=== PATIENT | male | born 1955 | race American Indian/Alaskan Native ===

== ENCOUNTER 2017-03-17 10:13 | Inpatient (IN) ==
[2017-03-12 14:47] LABS: Basophils # (Auto) 0 K/mcL (0.0-0.3); Basophils % (Auto) 0.5 % (0.0-2.0); Eosinophils # (Auto) 0.3 K/mcL (0.0-0.7); Eosinophils % (Auto) 3.3 % (0.0-7.0); Granulocytes % (Auto) 73.2 % (38.0-78.0); Lymphocytes # (Auto) 1.5 K/mcL (1.5-4.8); Lymphocytes % (Auto) 15.8 % (15.5-49.0); Mean Cell Volume 88.7 fL (80.0-100.0); Mean Corpuscular HGB Conc 34.7 g/dL (31.0-36.0); Mean Corpuscular Hemoglobin 30.8 pg (26.0-34.0); Monocytes # (Auto) 0.7 K/mcL (0.1-0.9); Monocytes % (Auto) 7.2 % (1.0-12.0); Platelet Count 279 K/mcL (140-440); RBC 4.81 M/mcL (4.50-5.90); Red Cell Distribution Width 12.7 % (11.5-14.5)
[2017-03-12 14:54] LABS: Appearance,Urine CLEAR; Bilirubin,Urine NEG (NEG); Color,Urine YELLOW; Glucose,Urine (UA) NEGATIVE (NEG); Leukocyte Esterase,Urine NEG /uL (NEG); Nitrate,Urine NEG (NEG); Protein,Urine NEG (NEG); Specific Gravity,Urine 1.024 (1.000-1.035); Urine Blood NEG mg/dL (<0.03); Urobilinogen,Urine NEG (NEG)
[2017-03-12 15:07] LABS: Blood Urea Nitrogen 15 mg/dl (8-23)
[~2017-03-17 10:13] MED LIST: CELECOXIB 200 MG CAPSULE PO SCH; KETOROLAC 30 MG, ROPIVACAINE HCL/PF 49.5 ML, EPINEPHrine 0.5 MG, 0.9 % SODIUM CHLORIDE ... IJ SCH; PREGABALIN 75 MG CAPSULE PO SCH; ceFAZolin 1 GM VIAL IV SCH; oxyCODONE 10 MG TAB.ER.12H PO SCH
[2017-03-17] MEDS ORDERED: ROPIVACAINE HCL/PF 30 ML VIAL IJ ONE (13:50)
[2017-03-17] MEDS ORDERED: LIDOCAINE HCL/PF 100 MG/5 ML SYRINGE IV ONE (13:50)
[2017-03-17] MEDS ORDERED: GLYCOPYRROLATE 0.2 MG/ML VIAL IV ONE (13:50)
[2017-03-17] MEDS ORDERED: TRANEXAMIC ACID 1,000 MG/10 ML VIAL IV ONE ×2 (13:50→16:04)
[2017-03-17] MEDS ORDERED: MIDAZOLAM 5 MG/5 ML VIAL IV ONE (13:50)
[2017-03-17] MEDS ORDERED: PROPOFOL 200 MG/20 ML VIAL IV ONE (13:50)
[2017-03-17] MEDS ORDERED: PHENYLEPHRINE 10 MG/ML VIAL IV ONE (13:50)
[2017-03-17] MEDS ORDERED: KETAMINE 100 MG/ML ML IV ONE (13:50)
[2017-03-17] MEDS ORDERED: ONDANSETRON 4 MG/2 ML VIAL IV ONE (13:50)
[2017-03-17] MEDS ORDERED: ePHEDrine 50 MG/ML AMPUL IV PRN (15:17)
[2017-03-17] MEDS ORDERED: PROMETHAZINE 25 MG/ML VIAL IV PRN (15:17)
[2017-03-17] MEDS ORDERED: IPRATROPIUM/ALBUTEROL 3 ML AMPUL.NEB NEB PRN (15:17)
[2017-03-17] MEDS ORDERED: METHOCARBAMOL 1,000 MG/10 ML VIAL IV PRN (15:17)
[2017-03-17] MEDS ORDERED: BENZOCAINE/MENTHOL 1 LOZENGE PO PRN ×2 (15:17→16:04)
[2017-03-17] MEDS ORDERED: MEPERIDINE 25 MG/ML SYRINGE IV PRN (15:17)
[2017-03-17] MEDS ORDERED: fentaNYL 100 MCG/2 ML VIAL IV PRN (15:17)
[2017-03-17] MEDS ORDERED: LACTATED RINGERS 1,000 ML IV SCH (15:30)
[2017-03-17] MEDS ORDERED: FLEETS ADULT ENEMA PR PRN (16:04)
[2017-03-17] MEDS ORDERED: MAGNESIUM HYDROXIDE 30 ML ORAL.SUSP PO PRN (16:04)
[2017-03-17] MEDS ORDERED: POLYETHYLENE GLYCOL 3350 17 GM PACKET PO PRN (16:04)
[2017-03-17] MEDS ORDERED: BISACODYL 10 MG SUPP.RECT PR PRN (16:04)
[2017-03-17] MEDS ORDERED: ONDANSETRON 4 MG/2 ML VIAL IV PRN (16:04)
--- NOTE | 2017-03-17 16:04 | Brief Operative Note ---
Date of procedure: 03/17/17 Pre-op diagnosis: Severe R knee DJD Post-op diagnosis: same Procedure: Right robotic assisted total knee arthroplasty Grafts/Implants: Yes (Isaura Triathlon 7 CR femur, 7 tibia, 9mm insert, 36 patella) Anesthesia: spinal, GLMA Findings: arthritis, severe Complications: none Surgeon: Rocael Hopper Business Administration Instructor: Laila Aldana Estimated blood loss (cc): 30 Specimens Removed/Pathology: none sent Condition: stable Disposition: PACU
[2017-03-17] MEDS ORDERED: DEXTROSE 50% 50 ML VIAL IV PRN (16:09)
--- NOTE | 2017-03-17 17:33 | XRay Report ---
CLINICAL INFORMATION: Reason for Exam:Post-op total knee. COMPARISON: None. FINDINGS: Total knee prostheses is anatomically aligned. There is no osseous abnormality. Few small calcification seen in the medial particular region. IMPRESSION: Negative Interpreted and Authenticated by: Alexis Abad 03/17/17
[2017-03-17] MEDS: INSULIN LISPRO 1 UNIT/0.01 ML UNIT SQ SCH ×2 (17:43→21:05)
[2017-03-17] MEDS: 0.9 % SODIUM CHLORIDE 1,000 ML IV SCH (17:50)
[2017-03-17] MEDS: KETOROLAC 30 MG/ML VIAL IV SCH (18:13)
[2017-03-17] MEDS: HYDROmorphone 2 MG/ML SYRINGE IV PRN ×2 (18:18→22:24)
[2017-03-17] MEDS: metFORMIN 500 MG TABLET PO SCH (19:00)
[2017-03-17] MEDS: HYDROcodone/APAP 10/325MG TABLET PO PRN ×2 (19:09→23:22)
[2017-03-17] MEDS ORDERED: DOCUSATE SODIUM 100 MG CAPSULE PO SCH (21:00)
[2017-03-17] MEDS ORDERED: SENNOSIDES 1 TABLET PO SCH (21:00)
[2017-03-17] MEDS ORDERED: SIMVASTATIN 40 MG TABLET PO SCH (21:00)
[2017-03-17] MEDS: DOCUSATE SODIUM 100 MG CAPSULE PO SCH (21:04)
[2017-03-17] MEDS: ceFAZolin 1 GM VIAL IV SCH (21:04)
[2017-03-17] MEDS: LISINOPRIL 20 MG TABLET PO SCH (21:04)
[2017-03-17] MEDS: ASPIRIN 325 MG ENTERIC COATED TABLET PO SCH (21:05)
[2017-03-17] MEDS: 0.9 % SODIUM CHLORIDE 10 ML SYRINGE IV SCH (21:05)
[2017-03-18] MEDS: KETOROLAC 30 MG/ML VIAL IV SCH ×2 (00:05→05:43)
[2017-03-18] MEDS: 0.9 % SODIUM CHLORIDE 1,000 ML IV SCH ×2 (02:17→10:42)
[2017-03-18] MEDS: HYDROcodone/APAP 10/325MG TABLET PO PRN ×2 (04:05→09:13)
[2017-03-18] MEDS: ceFAZolin 1 GM VIAL IV SCH (05:09)
[2017-03-18] MEDS: 0.9 % SODIUM CHLORIDE 10 ML SYRINGE IV SCH (05:17)
[2017-03-18] MEDS: INSULIN LISPRO 1 UNIT/0.01 ML UNIT SQ SCH (07:05)
--- NOTE | 2017-03-18 07:25 | Operative Note ---
DATE OF OPERATION: 03/17/2017 PREOPERATIVE DIAGNOSIS: Right knee severe osteoarthritis. POSTOPERATIVE DIAGNOSIS: Right knee severe osteoarthritis. PROCEDURE PERFORMED: Right robotic-assisted total knee arthroplasty using a Isaura size 7 cruciate retaining femoral component, a size 7 tibial baseplate, a 9 mm X3 tibial insert with a 36 mm patellar button. SURGEON: Rocael Hopper MD. PRODUCT ADVISOR: Laila Kelley PA-C ANESTHESIA: Spinal plus general. DRAINS: None. SPECIMENS: Bone cuts, which were discarded. BLOOD LOSS: 30 mL COMPLICATIONS: None. POSTOPERATIVE CONDITION: Stable. INDICATIONS FOR SURGERY: This is a 61-year-old male who had a remote history of trauma to the knee with prior surgeries. He has had longstanding worsening pain. Radiographs showed severe multi-compartment arthrosis. FINDINGS AT SURGERY: Severe multi-compartment arthrosis with varus deformity. Postoperative limb was good with good range of motion and stability. PROCEDURE IN DETAIL: The patient had been seen preoperatively. Informed consent had been obtained after discussion of risks and benefits of surgery. Risks including, but not limited to, bleeding, possibly requiring transfusion; infection, possibly requiring implant removal and prolonged IV antibiotics; injury to nerves, blood vessels or other surrounding structures; anesthetic risks; incomplete or no resolution of symptoms; stiffness, pain; instability, weakness; swelling, clunking; DVT and pulmonary embolus risks; and the possibility of needing further surgery. He understood these risks and wished to proceed. Correct operative site was marked and then patient received spinal anesthesia. He was then taken to the operating room and LMA general given. The right lower extremity was carefully prepped and draped in normal sterile fashion and a time-out was performed verifying patient name, operative site, and plan. Esmarch was used to exsanguinate the extremity and tourniquet was inflated. His previous incision was a medially based incision. He also had a far lateral incision which was too far lateral to be usable so I incorporated his medial incision proximally. This was angled towards the midline and distally also angled towards the midline. Scalpel was used through skin and subcutaneous tissue and continued sharp dissection down to the extensor mechanism and then this was elevated and IrriSept irrigated. We then made a medial parapatellar arthrotomy and a subperiosteal exposure done of the anterior medial tibia. This was taken and released to the deep fibers of the MCL around posterior due to his fixed varus deformity. We went ahead and also exposed the distal anterior cortex of the femur. The retropatellar fat pad was excised. His medial meniscus was absent. Anterior horn of the lateral meniscus was removed. The ACL was also absent. We went ahead and made stab incisions, two proximal and two distal and placed two bicortical femoral pins and two bicortical tibial pins, and then the arrays were attached to these. We also placed femoral and tibial check points. The hip center of rotation was taken as well as medial and lateral malleoli were identified and then check points were double checked. We then used the blue probe to take our registration point and then once this was completed, osteophytes were removed with rongeur. We then checked our flexion and extension gap required due to his varus deformity placing the tibia in some varus as well as the femur. Once we had 18 mm gaps we then on all 4 numbers we went ahead and put this into the robot. The checks and double checks were done and then we went ahead and did our bone cuts with robotic assistance. Once this was completed, we did our tibia external rotation and then the tibial component was pinned into place. Boss reamer and keel punch were used to prepare and then we elevated the femur and removed posterior osteophytes which were very large. We then placed our femoral trial and pinned this into place. Peg holes were drilled and then a 9 insert was placed. The knee still had about 10 degrees short of full extension but good overall limb alignment. We went ahead and prepared the patella using freehand technique and then medialized with a 36, drilled our holes and then placed the patellar component, and a limited lateral facetectomy was performed. Patellar tracking was good, so we went ahead and removed trial components. Definitive implants were opened. We irrigated with IrriSept. After waiting a minute, we pulse lavaged copiously with saline and then used CO2 gun to clean the cancellous bone surfaces. We then cemented the tibia followed by the femur and then the 9 trial insert placed. The knee was taken into extension and then the patellar button was cemented. We filled the joint with IrriSept and then used pain cocktail to inject the pericapsular and subcutaneous tissues. We then pulse lavaged copiously with saline. Once fully hardened, we flexed the knee up and did a final removal of cement. We removed the tibial insert and at this point I inspected posterior medially and identified a very large loose body. This measured probably 2 cm in diameter. I used a rongeur to chew it into smaller pieces and a curved curet to remove this. This improved our ability to get full extension and deep flexion. The 9 insert was then impacted, final IrriSept irrigation and then pulse lavage, and then knee was placed in about 45 degrees of flexion. Then #2 FiberWire interrupted [id number] were used from the superior quadrant around the patella and #1 Vicryl [id number] through the inferior quadrant, running #1 Vicryl for patellar tendon and quad tendon. Final IrriSept irrigation and after a minute pulse lavage and then 2-0 Monocryl was used for subcutaneous and shilpi for skin. Check points had been removed prior to closure. We also removed our tibial and femoral pins. Shilpi were used to close these and then Xeroform sterile dressing applied. Tourniquet was released. The patient was awakened, extubated, and transferred to recovery in stable condition. SHIRLENE:elmer Job ID: [id number] Doc ID: [id number] Rocael Hopper MD
--- NOTE | 2017-03-18 07:54 | Discharge Summary ---
Ortho Discharge - TKA - Patient Instructions Diet: Consistent Carbohydrate Activity: activity as tolerated, weight bearing as tolerated Total Knee Protocol: For Total Knee: Start ROM YAEL with stationary bike or rocking chair. Work on gaining full extension of knee. Posterior dislocation precautions provided. Hip abductor strengthening and gait training instructions provided. Apply Cryocuff as instructed. Dressing Care: Aquacel Ag - leave on for 5 days Patient Education: Total Knee Replacement (DC) - Follow Up Plan Follow Up Appointments: Carlo Chi PA-C [Physician Kindergarten Assistant] - 04/01/17 2:20 pm Disposition: Home, Self-Care Prognosis: Good Rehab Potential: Good - Orders For Discharge Additional Discharge Orders: Physical Therapy at Discharge - TKA Location: Determined By Patient Toilet Riser Discharge Order Location: Determined By Patient Walker Location: Determined By Patient
[2017-03-18] MEDS ORDERED: HYDROCHLOROTHIAZIDE 25 MG TABLET PO SCH (09:00)
[2017-03-18] MEDS: LISINOPRIL 20 MG TABLET PO SCH (09:04)
[2017-03-18] MEDS: DOCUSATE SODIUM 100 MG CAPSULE PO SCH (09:04)
[2017-03-18] MEDS: metFORMIN 500 MG TABLET PO SCH (09:04)
[2017-03-18] MEDS: ASPIRIN 325 MG ENTERIC COATED TABLET PO SCH (09:04)
== END 2017-03-18 10:30 | disposition home or self-care (01) | DRG 470 ==
LOC: MEDSUR 10:13
PROVIDERS: ADMIT Orthopaedic Surgery; ATTEND Orthopaedic Surgery